=== PATIENT | male | born 1980 ===

== ENCOUNTER 2024-02-09 10:40 | Emergency (ER) | payer OTHER, SELFPAY ==
[2024-02-09 10:49] VITALS: BP 141/73; PULSE 99; RESP 18; TEMP 36.7; O2SAT 98; BMI 24.3
--- NOTE | 2024-02-09 10:52 | DI.RAD.S_ITS ---
PROCEDURE: XR ANKLE LT MIN 3V INDICATIONS: twisted ankle TECHNIQUE: 3 views of the ankle were acquired. COMPARISON: None. FINDINGS: Bones: Mildly displaced distal fibular fracture. Syndesmosis does not appear widened. Tibiotalar joint space is maintained. Soft tissues: No tibiotalar joint effusion. Achilles tendon appears normal. IMPRESSION: Mildly displaced spiral distal fibular fracture. Dictated by: Lakesha Campuzano M.D. on 02/09/2024 at 11:20 Approved by: Lakesha Campuzano M.D. on 02/09/2024 at 11:21
--- NOTE | 2024-02-09 11:33 | ED_ITS ---
HPI - Extremity Injury (Lower) General Chief Complaint: Extremity Injury, Lower Stated Complaint: LT ANKLE SPRAIN Time Seen by Provider: 02/09/24 11:28 History of Present Illness HPI Narrative: Patient here with partner complains of left ankle pain. He was trail walking yesterday. He twisted his ankle. Was able to bear weight and come off the trail. No previous injury or surgery to this ankle. Knee to toes exposed. Has diffuse ecchymosis from distal 3rd of the leg down to the toes. Foot is warm soft and pink with strong pedal pulse light touch intact to foot and toes. Able to flex and extend at the ankle without difficulty. Able to stand and bear weight but does have antalgic gait without foot drop. Related Data Previous Rx's Medication Instructions Recorded ibuprofen 800 mg tablet 800 mg PO Q8H PRN pain #20 tabs 02/09/24 Allergies Allergy/AdvReac Type Severity Reaction Status Date / Time No Known Drug Allergies Allergy Verified 02/09/24 10:48 Review of Systems Review of Systems Narrative: GENERAL: negative chills, fatigue, malaise, fever, sweats. HEENT: negative sinus pain, ear pain, sore throat RESPIRATORY: negative dyspnea, cough CARDIOVASCULAR: negative chest pain, palpitations GASTROINTESTINAL: negative nausea, vomiting, abdominal pain : negative dysuria, frequency, hematuria MUSCULOSKELETAL: Positive muscle or bony pain SKIN: negative rash, skin lesions NEUROLOGIC: negative weakness, numbness ROS Unobtainable: All systems reviewed & are unremarkable except as noted in HPI and below Patient History Social History Smoking Status: Never smoker Smoking Status: Never smoker alcohol intake frequency: other Substance Use Type: former substance user Exam Narrative Exam Narrative: GENERAL: in no distress, not toxic not dyspneic HEAD: Normocephalic. EYES: Pupils equal round EXTREMITIES: No gross deformities. Knee to toes exposed. Has diffuse ecchymosis from distal 3rd of the leg down to the toes. Light touch intact to foot and toes. Wiggles toes. Able to flex and extend at the ankle without any difficulty. Foot is warm soft and pink with strong pedal pulse light touch intact to foot and toes. Able to flex and extend at the ankle without difficulty. Able to stand and bear weight but does have slight antalgic gait without foot drop. NEURO: AOx4. SKIN: Warm and dry PSYCH: Not anxious, is cooperative Initial Vital Signs Initial Vital Signs: Vital Signs Temperature 98.0 F 02/09/24 10:49 Pulse Rate 99 H 02/09/24 10:49 Respiratory Rate 18 02/09/24 10:49 Blood Pressure 141/73 H 02/09/24 10:49 Pulse Oximetry 98 02/09/24 10:49 Oxygen Delivery Method Room Air 02/09/24 10:49 Procedures Orthopedic Splinting/Casting Injury #1: Time of procedure: 11:43 Side: left Lower Extremity Injury Location: ankle Lower Extremity Immobilizer: posterior splint and stirrup splint Other Orthopedic Equipment: crutches Post splinting neuro exam: intact Post splinting vascular exam: intact Placed by: Nursing Course Orders Ordered: ED Orders 02/09/24 10:52 XR ankle LT min 3V Stat Discontinued Medications Ibuprofen (Ibuprofen 400 Mg Tablet) 800 mg PO NOW ONE Stop: 02/09/24 11:47 Last Admin: 02/09/24 12:05 Dose: 800 mg Documented By: BROOKE Vital Signs Vital signs: Vital Signs - 8 hr 02/09/24 10:49 Temperature 98.0 F Pulse Rate 99 H Respiratory Rate 18 Blood Pressure 141/73 H Pulse Oximetry 98 Oxygen Delivery Method Room Air MDM - Extremity Injury (Lower) Imaging Data Extremity x-ray #1: Radiologist's Impression: [place] [address] XRay Report Signed Patient: Juan Alberto Julien MR#: [id number] : 1980 Acct:[id number] Age/Sex: 43 / M Date of Service: 02/09/24 Loc: ED Accession Number: [id number] Procedure: XR ankle LT min 3V Ordering Provider: Colby Hilton MD PROCEDURE: XR ANKLE LT MIN 3V INDICATIONS: twisted ankle TECHNIQUE: 3 views of the ankle were acquired. COMPARISON: None. FINDINGS: Bones: Mildly displaced distal fibular fracture. Syndesmosis does not appear widened. Tibiotalar joint space is maintained. Soft tissues: No tibiotalar joint effusion. Achilles tendon appears normal. IMPRESSION: Mildly displaced spiral distal fibular fracture. Dictated by: Lakesha Campuzano M.D. on 02/09/2024 at 11:20 Approved by: Lakesha Campuzano M.D. on 02/09/2024 at 11:21 [facility] Narrative Medical decision making narrative: After history and exam x-ray left ankle splint crutches, pain is controlled, no medications indicated [facility] Medical records reviewed: No recent visit for this complaint Differential considered: Includes but not limited to ankle fracture ankle sprain strain Achilles tendon injury Imaging studies independently reviewed: X-ray left ankle mildly displaced s piral distal fibular fracture Consultations: Referral for Orthopedics provided Treatments: Ortho splint, no pain medications required at this time. Re-evaluations: 11:44 a.m.. Reviewed exam results with patient and partner. He does have a broken ankle. Fracture reviewed with him. Crutches provided. Agrees with splinting. Work note provided. Return precautions reviewed and he desires discharge home. Pain is very well controlled. No prescriptions are indicated. Discussion: Appropriate for discharge home. Exam is reassuring. Neurovascularly intact. Ecchymosis likely from dependent ecchymosis/edema. Work note provided. Splint applied. Crutches provided. Pain is controlled. Orthopedic referral provided. At time of discharge patient did desire prescription for ibuprofen 800 mg tablets Diagnosis: Left ankle fracture Discharge Plan Departure Patient Disposition: Home Clinical Impression: Ankle fracture Qualifiers: Encounter type: initial encounter Fracture type: closed Laterality: left Qualified Code(s): S82.892A - Other fracture of left lower leg, initial encounter for closed fracture Instructions: DI for Ankle Fracture Activity Restrictions/Additional Instructions: You do have a broken bone on the ankle. It is the fibula bone. A splint has been placed and crutches provided. No weight-bearing. Please call provided orthopedic office today for office appointment within a week for re-evaluation. Please keep leg and foot elevated when at rest. May continue Tylenol or ibuprofen for pain. Return if worse if any questions or concerns. Work note has been provided for you. Prescriptions: New ibuprofen 800 mg tablet 800 mg PO Q8H PRN (Reason: pain) Qty: 20 0RF Referrals: Yisel Quinteros MD [Physician] - Stand Alone Forms: Patient Portal/API, Work Release Note
[2024-02-09] MEDS: IBUPROFEN 400 MG TABLET 800 MG PO (12:05)
== END 2024-02-09 12:13 | disposition home or self-care (01) ==
PROVIDERS: Emergency Provider Emergency Medicine
DX: S82.892A Other fracture of left lower leg, initial encounter for closed fracture (principal); X50.1XXA Overexertion from prolonged static or awkward postures, initial encounter
CPT/HCPCS: 73610; 99283